=== PATIENT | male | born 1955 | race Caucasian/White ===

== ENCOUNTER 2019-08-15 11:56 | Outpatient (CLI) | payer BC, SELFPAY ==
--- NOTE | ~2019-08-15 | XR_ITS ---
EXAMINATION: XR chest 2V DATE: 08/15/2019 12:19 INDICATION: Dyspnea. Central and posterior chest pain. TECHNIQUE: PA and lateral views of the chest were obtained. 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 No other airspace opacities, pulmonary edema, pleural effusion or pneumothorax. The card iomediastinal silhouette is normal. 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 Postoperative change of prior acromioplasty and distal clavicle resection at the located within [facility] shoulder. IMPRESSION: 1. No acute cardiopulmonary disease. Reviewed, dictated and finalized at location A.
== END 2019-08-15 11:57 | disposition home or self-care (01) ==
LOC: ANHIMG 12:04
PROVIDERS: PCP Family Medicine; Visit Provider Family Medicine
DX: R06.00 Dyspnea, unspecified (principal)
CPT/HCPCS: 71046